=== PATIENT | female | born 1990 | race Caucasian/White ===

== ENCOUNTER 2016-07-23 18:31 | Inpatient (IN) | payer OTHER ==
[~2016-07-23] VITALS: Ht 157.5 cm; Wt 65.5 kg
--- NOTE | 2016-07-23 21:03 | DIAGNOSTIC IMAGING REPORT ---
PROCEDURE: CT ABD/PELVIS WITH CONTRAST INDICATION: Lower abdominal and back pain. Nausea and vomiting. Prior section. TECHNIQUE: 125 ml of Isovue 300 were injected intravenously and axial images were obtained of the entire abdomen and pelvis with sagittal and coronal reformations. COMPARISON: None. FINDINGS: ABDOMEN: There are moderately dilated distal small bowel loops. There is mild mucosal thickening of the right colon. Appendix is normal. Small amount of ascites. Gallbladder is partially contracted. Liver, spleen, pancreas, kidneys, and aorta are normal. PELVIS: Uterus and adnexal structures are normal. Small amount of ascites. IMPRESSION: 1. Moderately dilated distal small bowel loop suggest moderate to high-grade distal small bowel obstruction (possible closed-loop obstruction). 2. Associated small amount of ascites. 3. Mild mucosal thickening in the right colon. Consider associated colitis. 4. Normal appendix. 5. Findings discussed with JEFRY Oneill. All CT scans at this facility use dose modulation, iterative reconstruction, and/or weight-based dosing when appropriate to reduce radiation dose to as low as reasonably achievable.
--- NOTE | 2016-07-23 21:08 | ED NURSING NOTES ---
Clinical Report - Nurses [facility] [address] [place] [address] 07/23/2016 18:31 Patient: KAVITA DUMONT TRIAGE Triage time 18:50. Acuity: LEVEL 3. Chief Complaint: ABDOMINAL PAIN. 18:50 07/23/16. 18:50 07/23/16. Alert. SEPSIS SCREEN: Sepsis Screen. Negative (no infection suspected/documented). --18:54 Gerson Dixon R.N. 18:50 07/23/16. BP: 130/80. HR: 67. RR: 18. O2 saturation: 99% on room air. Temp: 97.7 F (oral). Pain level now: 11/18. --18:54 Gerson Dixon R.N. Weight: 58.9 kg stated. Height/Length: 62 inches Per Patient. BMI: 23.8. --18:51 Gerson Dixon R.N. Medications None. --18:52 Gerson Dixon R.N. Medication/allergy information source: the patient. --18:54 Gerson Dixon R.N. Allergies None. --18:52 Gerson Dixon R.N. History Arrived by private vehicle. Historian: patient. Accompanied by family. Primary physician (PAYAM DOHERTY). 18:50 07/23/16. This started today. She has had nausea and vomiting. 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 PAST MEDICAL HX: Immunizations: up-to-date. Last normal menstrual period- Just completed. Denies current . SOCIAL HX: Former smoker (cigarette)- less than 1/2 a pack per day. Occasional alcohol use. History of occasional drug use: marijuana. No recent travel. No infectious disease exposure. No known contact with a sick individual. ABUSE ASSESSMENT: No report of abuse. FALL RISK ASSESSMENT: Fall risk assessment completed. No fall risk identified. NUTRITIONAL RISK ASSESSMENT: The nutritional risk assessment revealed no deficiencies. FUNCTIONAL ASSESSMENT: Functional assessment: no impairments noted. LEARNING NEEDS ASSESSMENT: The learning needs assessment revealed no barriers. SKIN INTEGRITY ASSESSMENT: Skin integrity risk assessment completed. No skin integrity risk identified. --18:54 Gerson Dixon R.N. PROBLEMS: no known problems. ADDITIONAL SURGERIES: . --18:52 Gerson Dixon R.N. Assessment 18:50 07/23/16. --18:54 Gerson Dixon R.N. Interventions 18:50 07/23/16. 18:50 07/23/16. ID and allergy band on patient. To treatment room. --18:54 Gerson Dixon R.N. PHYSICAL ASSESSMENT 18:52 07/23/16. GENERAL / NEURO / PSYCH: Alert. Oriented X 4. RESPIRATORY: Respirations not labored. GI / : Abdominal tenderness diffusely. SKIN: Skin is warm and dry. --18:52 Gerson Dixon R.N. NURSING PROGRESS NOTES 18:53 07/23/16. The plan of care for this patient has been created. Patient gowned. Head of bed elevated. Reassurance given. Two patient identifiers checked. Call light placed in reach. Side rails up x 2. Bed placed in lowest position. Brakes of bed on. --18:53 Gerson Dixon R.N. 18:53 07/23/16. Patient ready for evaluation- chart flagged and notification provided. --18:53 Gerson Dixon R.N. 19:05 07/23/2016 Site #1 started via IV in the right antecubital space with an 20g angiocath; one attempt. Blood drawn: rainbow set. Labeled in the presence of the patient and sent to the lab. Saline lock flushed. --19:[address] R.N. 19:10 07/23/2016 Started bag #1 1000 mL IV Fluids IV NS (Saline); at 1000 mL/hr over 1 hour(s) via site #1 via IV pump. --19:[address] R.N. 19:11 07/23/2016 Dilaudid (HYDROmorphone HCl PF) IVP 1 mg given over 30 second(s) via site #1. Allergies verified, confirmed 5 rights and sedative warning given to the patient and patient's family. IV patency established. IV site checked: no pain, redness, or swelling. IV flushed thoroughly pre- and post-medication administration. IVP given by RN. --19:[address] R.N. 19:11 07/23/2016 Zofran (Ondansetron HCl) IVP 8 mg given over 4 minute(s) via site #1. Allergies verified and confirmed 5 rights. IV patency established. IV site checked: no pain, redness, or swelling. IV flushed thoroughly pre- and post-medication administration. IVP given by RN. --19:[address] R.N. 19:30 07/23/16. BP: 116/56. HR: 57. RR: 15. O2 saturation: 99%. Pain level now: 09/18. --19:[address] R.N. Reassessment after fluids administered. She has had no adverse reaction. Overall patient status is the same- she states feels the same. ( Pt still complaining of abdominal pain, will notify PA, denies feeling nausea or any further vomiting. IV fluids infusing as ordered). GI / : The patient reports abdominal pain. Denies nausea, diarrhea or vomiting. --19:[address] R.N. 19:53 07/23/2016 Dilaudid (HYDROmorphone HCl PF) IVP 1 mg given over 30 second(s) via site #1. Allergies verified, confirmed 5 rights and sedative warning given to the patient and patient's family. IV patency established. IV site checked: no pain, redness, or swelling. IV flushed thoroughly pre- and post-medication administration. IVP given by RN. --19:[address] R.N. Patient transported to [facility] by stretcher. (3 PM). --19:[address] R.N. late entry - 20:00. --20:[address] R.N. 20:00 07/23/16. BP: 106/58 (regular adult cuff) taken on the left arm, via an automated monitor, while lying. HR: 56. RR: 16 (regular). O2 saturation: 100%. Temp: 98.1 F. Pain level now: 06/18. --20:[address] R.N. Reassessment after fluids administered. Overall patient status is the same- she states feels the same. ( Would like more pain meds, will notify PA). GI / : The patient reports nausea. The patient reports abdominal pain. Denies diarrhea or vomiting. --20:[address] R.N. 20:58 07/23/16. BP: 106/82. HR: 56. RR: 16. O2 saturation: 97%. Temp: 98.1 F. Pain level now: 09/18. --20:[address] R.N. 21:05 07/23/2016 Dilaudid (HYDROmorphone HCl PF) IVP 2 mg given over 20 second(s) via site #1. Allergies verified, confirmed 5 rights and sedative warning given to the patient and patient's family. IV patency established. IV site checked: no pain, redness, or swelling. IV flushed thoroughly pre- and post-medication administration. IVP given by RN. --21:[address] R.N. 21:06 07/23/2016 PHENERGAN (Promethazine HCl) IVP 12.5 mg given over 30 second(s) via site #1. Allergies verified and confirmed 5 rights. IV patency established. IV site checked: no pain, redness, or swelling. IV flushed thoroughly pre- and post-medication administration. IVP given by RN. --21:[address] R.N. 21:42 07/23/2016 Ativan (LORazepam) IVP 2 mg given over 20 second(s) via site #1. Allergies verified, confirmed 5 rights and sedative warning given to the patient and patient's family. IV patency established. IV site checked: no pain, redness, or swelling. IV flushed thoroughly pre- and post-medication administration. IVP given by RN. --21:[address] R.N. 21:47 07/23/2016 Dilaudid (HYDROmorphone HCl PF) IVP 1 mg given over 20 second(s) via site #1. Allergies verified, confirmed 5 rights and sedative warning given to the patient and patient's family. IV patency established. IV site checked: no pain, redness, or swelling. IV flushed thoroughly pre- and post-medication administration. IVP given by RN. --21:[address] R.N. 21:50 07/23/16. BP: 101/68. HR: 59. RR: 14. O2 saturation: 98% on room air. Pain level now: 05/19. --21:[address] R.N. Pulse oximeter and NIBP monitor placed on patient; monitor alarms on. Reassurance given. ( NGT dropped #16 at 65 on the right nostril, secured now to LCWS, yellow clear noted. Pt tolerated well, VSS.). Two patient identifiers checked. Call light placed in reach. Side rails up x 1. Bed placed in lowest position. Brakes of bed on. --21:[address] R.N. Patient waiting for admit bed. --21:[address] R.N. 22:04 07/23/2016 Started bag #1 1000 mL IV Fluids IV NS (Saline); at 125 mL/hr over 5 hour(s) via site #1 via IV pump. Allergies verified and confirmed 5 rights. IV patency established. IV site checked: no pain, redness, or swelling. IV flushed thoroughly pre- and post-medication administration. --22:[address] R.N. Care transferred and report given (FABIO Herbert). --22:[address] R.N. 22:22 07/23/2016 Site #1 reassessed; patent, infusing well and no signs of infection. Good blood return present. --22:[address] R.N. Pulse oximeter and NIBP monitor placed on patient; monitor alarms on. Reassurance given. The patient is calm and resting quietly. Overall patient status is the same- she states feels better. GI / : Denies nausea or vomiting. --22:[address] R.N. DISPOSITION / DISCHARGE Report was given to a nurse via a phone call. Report included patient's care, treatment, medications, reviewed medication reconcilliation, and condition (including any recent changes or anticipated changes). All questions were answered. Report was acknowledged. (given by Yue Valdez RN). --:53 Shakila Be R.N. Departure time: :. --:53 Shakila Be R.N. Nasogastric tube not discontinued. Transported via stretcher by transport team with IV. --:53 Shakila Be R.N. 22:53 07/23/2016 Site #[address] upon admission. --22:53 Shakila Be R.N. 22:54 07/23/2016 IV Fluids IV NS Continued: at the rate of 125 mL/hr. 900 mL remaining bag #1. IV patency established. IV site checked: no pain, redness, or swelling. IV flushed thoroughly. --:54 Shakila Be R.N. Locked/Released at 07/24/2016 20:[address] R.N.
--- NOTE | 2016-07-23 21:08 | ED CLINICAL REPORT ---
Clinical Report - Physicians/Mid Levels [facility] [address] [place] [address] 07/23/2016 18:31 Patient: KAVITA DUMONT Time Seen: 19:08 Jul 23 2016. Arrived- By private vehicle. HISTORY OF PRESENT ILLNESS Chief Complaint: ABDOMINAL PAIN. It is described as "pain" and it is described as located in the periumbilical area. This started just prior to arrival and is still present. The patient has had nausea and vomiting. No diarrhea. (Patient reports sudden onset of abdominal pain, periumbilically with emesis/ nausea, denies diarrhea. Denies any recent illness. Denies urgency or frequency. Patient reports history of similar pain, with a bowel obstruction in the past, status post .). REVIEW OF SYSTEMS Last normal menstrual period- 2-3 days prior. No constipation, black stools, difficulty with urination, urinary frequency or fever. No headache, sore throat or chills. All systems otherwise negative, except as recorded above. PAST HISTORY Problems: no known problems. Additional Surgeries: . Medications: None. Allergies: None. SOCIAL HISTORY Former smoker. Alcohol use. ADDITIONAL NOTES The nursing notes have been reviewed. PHYSICAL EXAM Vital Signs: 07/23/2016 18:50 BP: 130/80. HR: 67. RR: 18. O2 saturation: 99%. Temp: 97.7 F. Pain level now: 10/10. Appearance: Alert. Eyes: Eyes normal inspection. ENT: Ears normal. Nose normal. Pharynx normal. Neck: Normal inspection. CVS: Normal heart rate and rhythm. Heart sounds normal. Respiratory: No respiratory distress. Breath sounds normal. Chest nontender. No accessory muscle use or decreased air movement. Abdomen: Moderate tenderness in the periumbilical area. Bowel sounds normal. No organomegaly. No mass. Scar present. Compatible with prior . Back: Normal inspection. No CVA tenderness. Skin: Skin warm. Normal skin color. Neuro: Oriented X 3. No motor deficit. LABS, X-RAYS, AND EKG Abdominal CT: IMPRESSION: 1. Moderately dilated distal small bowel loop suggest moderate to high-grade distal small bowel obstruction (possible closed-loop obstruction). 2. Associated small amount of ascites. 3. Mild mucosal thickening in the right colon. Consider associated colitis. 4. Normal appendix. 5. Findings discussed with JEFRY Oneill. All CT scans at this facility use dose modulation, iterative reconstruction, and/or weight-based dosing when appropriate to reduce radiation dose to as low as reasonably achievable. Electronically Final signed by:Danielito Mcgarry MD 07/23/2016 8:58:32 PM. Laboratory Tests: UA-Culture if indicated: (JACKSON: 07/23/2016 18:55) ( [facility] 07/23/2016 19:34) Final results Test Result Flag Units (Reference) URINE COLOR YELLOW URINE APPEARANCE CLEAR URINE GLUCOSE NEGATIVE (NEGATIVE) URINE BILIRUBIN NEGATIVE (NEGATIVE) URINE KETONE NEGATIVE (NEGATIVE) URINE SPECIFIC GRAVITY 1.015 (1.010-1.030) URINE PH 6.5 (5.0-8.0) URINE PROTEIN NEGATIVE (NEGATIVE) URINE UROBILINOGEN 0.2 EU/dL (0.2-1.0) URINE NITRITE NEGATIVE (NEGATIVE) URINE BLOOD NEGATIVE (NEGATIVE) URINE LEUK ESTERASE NEGATIVE (NEGATIVE) URINE RBC 0-1 rbc/hpf (0-1) URINE WBC 0-1 wbc/hpf (0-1) URINE EPITHELIAL CELLS 3-5 EPI/hpf (0-5) URINE BACTERIA TRACE (<1+) (NONE SEEN) URINE COMMENT CULT NOT INDICATED 2+ MUCUSURINE CULTURES ARE SET-UP BASED ON THE FOLLOWING CRITERIA:POSITIVE NITRITEPOSITIVE LEUKOCYTE ESTERASEGREATER THAN 10 WHITE BLOOD CELLSMODERATE (2+) OR GREATER BACTERIA Urine: (JACKSON: 07/23/2016 18:55) ( [facility] 07/23/2016 19:16) Final results Test Result Flag Units (Reference) URINE NEGATIVE CBC w Diff: (JACKSON: 07/23/2016 19:02) ( [facility] 07/23/2016 19:35) Final results Test Result Flag Units (Reference) WHITE BLOOD COUNT 8.1 K/uL (4.5-11.5) RED BLOOD COUNT 4.01 M/uL (4.00-5.20) HEMOGLOBIN 13.1 gm/dL (12.0-16.0) HEMATOCRIT 38.9 % (36.0-46.0) MEAN CELL VOLUME 97 fL (80-100) MEAN CORPUSCULAR HGB 33 pg (26-34) MEAN CORPUSCULAR HGB CONC 34 g/dL (31-37) RED CELL DISTRIBUTION WIDTH 13.2 % (11.6-14.8) PLATELET COUNT 272 K/uL (150-400) NEUTROPHIL % 46.8 L % (50-75) LYMPH % 44.0 H % (25-40) MONO % 7.9 % (3-14) EOSINOPHIL % 1.1 % (0-4) BASOPHIL % 0.2 % (0-2) CMP: (JACKSON: 07/23/2016 19:02) ( MsgRcvd 07/23/2016 19:42) Final results Test Result Flag Units (Reference) GLUCOSE 88 mg/dL (70-110) BUN 7 mg/dL (7-18) CREATININE 0.6 mg/dL (0.6-1.3) Estimated GFR >60 mL/min Estimated GFR- >60 mL/min Note: Persistent reduction over 3 months in eGFR<60 mL/min/1.73 m2 defines CKD. Patients with eGFR values>=60 mL/min/1.73 m2 may also have CKD if evidence ofpersistent proteinuria. Additional information may be foundat www.kidney.org. SODIUM 141 mmol/L (136-145) POTASSIUM 3.6 mmol/L (3.5-5.1) CHLORIDE 105 mmol/L (98-107) CARBON DIOXIDE 28 mmol/L (21-32) CALCIUM 9.3 mg/dL (8.5-10.1) TOTAL PROTEIN 7.0 g/dL (6.4-8.2) ALBUMIN 3.7 g/dL (3.3-5.0) BILIRUBIN, TOTAL 0.3 mg/dL (0.0-1.0) ALKALINE PHOSPHATASE 50 U/L (46-116) AST (SGOT) 18 U/L (15-37) ALT (SGPT) 32 U/L (12-78) LIPASE 139 U/L (73-393) . PROGRESS AND PROCEDURES Course of Care: patient in a lot of pain, dane-umbilically, with negative lab workup. CT of the abdomen was ordered. Patient with history of bowel obstruction. Signs early bowel obstruction in the emergency department. Case discussed with Dr. Issa, who recommends NG tube, and will admit the patient. NG tube placed. 07/23/2016 21:50 BP: 101/68. HR: 59. RR: 14. O2 saturation: 98%. Pain level now: 4/10. 07/23/2016 20:58 BP: 106/82. HR: 56. RR: 16. O2 saturation: 97%. Temp: 98.1 F. Pain level now: 8/10. Patient is stable. Physical exam findings are improved. Symptoms better. Patient/family counseled. Disposition: Admitted. CLINICAL IMPRESSION SBO. (Electronically signed by Brigid Aguilera P.A.-C 07/23/2016 22:14)
--- NOTE | 2016-07-23 21:08 | ED ORDER SUMMARY ---
..... Patient: KAVITA DUMONT [facility] VisitID: [id number] [place] [address] 25y, F Registration Date/Time: 07/23/2016 ORDER SHEET Weight: 58.9 kg (stated) Allergies: None GENERAL ORDERS: UA-Culture if indicated Urgent (18:53 07/23/2016 JBoardley R.N. per protocol) (Ack 18:55 PWeiler ER Tech1) (19:10 EHassan R.N.) Urine Urgent (18:53 07/23/2016 JBoardley R.N. per protocol) (Ack 18:55 PWeiler ER Tech1) (19:10 EHassan R.N.) CBC w Diff Urgent (19:00 07/23/2016 EKoroleva P.A.-C) (Ack 19:01 PWeiler ER Tech1) (19:10 EHassan R.N.) CMP Urgent (19:00 07/23/2016 EKoroleva P.A.-C) (Ack 19:01 PWeiler ER Tech1) (19:10 EHassan R.N.) Lipase Urgent (19:00 07/23/2016 EKoroleva P.A.-C) (Ack 19:01 PWeiler ER Tech1) (19:10 EHassan R.N.) NPO (19:00 07/23/2016 EKoroleva P.A.-C) (19:10 EHassan R.N.) CT Abd/Pel w Cont (No) (see lab) Urgent (19:45 07/23/2016 EKoroleva P.A.-C) (19:53 EHassan R.N.) NG Tube (to intermittent suction) (21:09 07/23/2016 EKoroleva P.A.-C) (21:46 EHassan R.N.) MEDICATION ORDERS: Phenergan IV 12.5 mg (HIGH ALERT MEDICATION, NOW) (21:00 07/23/2016 EKoroleva P.A.-C) (21:06 EHassan R.N.) IV FLUIDS: IV NS : initial bolus 1000 mL (1000 mL/hr), then 1000 mL/hr for X1 (NOW); Raghu (18:59 07/23/2016 EKoroleva P.A.-C) (19:10 EHassan R.N.) Dilaudid IV 1 mg (HIGH ALERT MEDICATION, NOW) (19:00 07/23/2016 EKoroleva P.A.-C) (19:11 EHassan R.N.) Zofran IV 8 mg (NOW) (19:08 07/23/2016 EKoroleva P.A.-C) (19:11 EHassan R.N.) Dilaudid IV 1 mg (HIGH ALERT MEDICATION, NOW) (19:50 07/23/2016 EKoroleva P.A.-C) (19:53 EHassan R.N.) Dilaudid IV 2 mg (HIGH ALERT MEDICATION, NOW) (20:59 07/23/2016 EKoroleva P.A.-C) (21:05 EHassan R.N.) Ativan IV 2 mg (HIGH ALERT MEDICATION, NOW) (21:34 07/23/2016 EKoroleva P.A.-C) (21:47 EHassan R.N.) Dilaudid IV 1 mg (HIGH ALERT MEDICATION, NOW) (21:34 07/23/2016 EKoroleva P.A.-C) (21:47 EHassan R.N.) IV NS : initial bolus none -, then 125 mL/hr for X1 (NOW); Raghu (21:52 07/23/2016 EKoroleva P.A.-C) (22:19 EHassan R.N.) ORDER SHEET NOTES: [Electronically signed by Brigid AguileraAShadia-C (22:14 07/23/2016)] [Electronically signed by Concepcion Lane R.N. (20:28 07/24/2016)] [Electronically locked/signed by Concepcion Lane R.N. (20:28 07/24/2016)]
--- NOTE | 2016-07-23 21:08 | ED ORDER SUMMARY ---
..... Patient: KAVITA DUMONT OrderSheet [facility] VisitID: [id number] [place] [address] 25y, F Registration Date/Time: 07/23/2016 ORDER SHEET Weight: 58.9 kg (stated) Allergies: None GENERAL ORDERS: UA-Culture if indicated Urgent (18:53 07/23/2016 JBoardley R.N. per protocol) (Ack 18:55 PWeiler ER Tech1) (19:10 EHassan R.N.) Urine Urgent (18:53 07/23/2016 JBoardley R.N. per protocol) (Ack 18:55 PWeiler ER Tech1) (19:10 EHassan R.N.) CBC w Diff Urgent (19:00 07/23/2016 EKoroleva P.A.-C) (Ack 19:01 PWeiler ER Tech1) (19:10 EHassan R.N.) CMP Urgent (19:00 07/23/2016 EKoroleva P.A.-C) (Ack 19:01 PWeiler ER Tech1) (19:10 EHassan R.N.) Lipase Urgent (19:00 07/23/2016 EKoroleva P.A.-C) (Ack 19:01 PWeiler ER Tech1) (19:10 EHassan R.N.) NPO (19:00 07/23/2016 EKoroleva P.A.-C) (19:10 EHassan R.N.) CT Abd/Pel w Cont (No) (see lab) Urgent (19:45 07/23/2016 EKoroleva P.A.-C) (19:53 EHassan R.N.) NG Tube (to intermittent suction) (21:09 07/23/2016 EKoroleva P.A.-C) (21:46 EHassan R.N.) MEDICATION ORDERS: Phenergan IV 12.5 mg (HIGH ALERT MEDICATION, NOW) (21:00 07/23/2016 EKoroleva P.A.-C) (21:06 EHassan R.N.) IV FLUIDS: IV NS : initial bolus 1000 mL (1000 mL/hr), then 1000 mL/hr for X1 (NOW); Raghu (18:59 07/23/2016 EKoroleva P.A.-C) (19:10 EHassan R.N.) Dilaudid IV 1 mg (HIGH ALERT MEDICATION, NOW) (19:00 07/23/2016 EKoroleva P.A.-C) (19:11 EHassan R.N.) Zofran IV 8 mg (NOW) (19:08 07/23/2016 EKoroleva P.A.-C) (19:11 EHassan R.N.) Dilaudid IV 1 mg (HIGH ALERT MEDICATION, NOW) (19:50 07/23/2016 EKoroleva P.A.-C) (19:53 EHassan R.N.) Dilaudid IV 2 mg (HIGH ALERT MEDICATION, NOW) (20:59 07/23/2016 EKoroleva P.A.-C) (21:05 EHassan R.N.) Ativan IV 2 mg (HIGH ALERT MEDICATION, NOW) (21:34 07/23/2016 EKoroleva P.A.-C) (21:47 EHassan R.N.) Dilaudid IV 1 mg (HIGH ALERT MEDICATION, NOW) (21:34 07/23/2016 EKoroleva P.A.-C) (21:47 EHassan R.N.) IV NS : initial bolus none -, then 125 mL/hr for X1 (NOW); Raghu (21:52 07/23/2016 EKoroleva P.A.-C) (22:19 EHassan R.N.) ORDER SHEET NOTES: [Electronically signed by Brigid AguileraAShadia-C (22:14 07/23/2016)] [Electronically signed by Concepcion Lane R.N. (20:28 07/24/2016)] [Electronically locked/signed by Concepcion Lane R.N. (20:28 07/24/2016)]
[2016-07-23 23:06] VITALS: BP 103/53
[2016-07-24] VITALS (10 sets, daily range): BP systolic 95–115; BP diastolic 50–82
--- NOTE | 2016-07-24 11:22 | CONSULTATION REPORT ---
DATE OF CONSULTATION: 07/24/2016 CHIEF COMPLAINT: 1. Abdominal pain HISTORY OF PRESENT ILLNESS: The patient is a 25-year-old woman who presented to the emergency department with the acute onset of lower abdominal pain of sudden onset. The pain persisted overnight, requiring pain medication. The patient indicates the pain is slightly to the right of midline. ED evaluation included a CT scan, which demonstrated dilated loops of bowel, consistent with a closed loop obstruction in that area. The patient reports having had a similar episode treated at another hospital with nasogastric decompression until it fully resolved. Her only previous abdominal surgery is a . MEDICAL/SURGICAL HISTORY: Medical history is unremarkable. Past medical illnesses: None. MEDICATIONS: 1. None. ALLERGIES: 1. NONE. 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 She is engaged to be . She is G2, P2, both C-sections, one 7 years ago and one 10 months ago. FAMILY HISTORY: Largely unknown, except that her mother at some point from renal failure. REVIEW OF SYSTEMS: The patient reports a similar episode to this occurred shortly after a section and resolved with decompression, nasogastric management. REVIEW OF SYSTEMS: GENERAL: The patient is alert and cooperative. She was sleeping after receiving pain medications, but once awoken she was able to provide appropriate history and was oriented. VITAL SIGNS: Most recent vital signs: Temperature 98.2, pulse of 58, respirations 18, blood pressure 115/70, 100% room air O2 saturation. HEENT: Her ears and nose demonstrate no gross external lesions. Eyes are equal. She is anicteric. NECK: Without palpable masses or thyromegaly. CHEST: Clear, without wheeze or rales. HEART: Regular, without murmur or gallop. ABDOMEN: Reveals localized tenderness in the right lower quadrant of the abdomen , with involuntary guarding in this area. Once she had received pain medications, however, her belly became quite a bit softer. LAB/IMAGING: CBC: White count is 8.1, hemoglobin and hematocrit 13.1 and 38.9. Electrolytes, liver enzymes, and lipase are all normal. Urinalysis is 0-1 red cells, 0-[address] scan demonstrated moderately dilated distal small bowel suggesting a wfewcynu-nx-bjwz-grade distal small-bowel obstruction, and possibly closed loop. There is also a small amount of ascites. There was some mucosal thickening in the right colon, and colitis was also raised as a possibility. The appendix was normal. IMPRESSION: 1. Small bowel obstruction with possible closed-loop obstruction PLAN: I recommended a diagnostic laparoscopy. I reported to the patient the nature of this procedure. There is some uncertainty of what we will find. If we are jay and there is simply adhesive obstruction without strangulation or infarction of the bowel, then simply dividing the adhesion may be accomplished laparoscopically. If, however, we find gut or more serious pathology, open surgery could prove to be necessary, bowel resection and many other unpredictable possibilities. I made the patient aware of these and other risks. She desires to proceed with surgery as described to her. Generic risks were also discussed, including infection, bleeding, scars, pain, damage to local structures. I talked about the remote possibility of a stoma.
--- NOTE | 2016-07-24 17:17 | OPERATIVE REPORT ---
DATE OF SURGERY: 07/24/2016 SURGEON: Arthur Thomas MD PREOPERATIVE DIAGNOSIS: 1. Small-bowel obstruction POSTOPERATIVE DIAGNOSIS: 1. Small-bowel obstruction PROCEDURE PERFORMED: 1. Diagnostic laparoscopy with adhesiolysis ANESTHESIA: General. COMPLICATIONS: No intraoperative complications were encountered. INDICATIONS: The patient is a 25-year-old woman with evidence of a bowel obstruction and ongoing pain despite decompression. SURGICAL TECHNIQUE: The patient was taken to the operating room, where a general anesthetic was administered and patient prepped and draped in the usual sterile fashion. A local anesthetic of 0.5% Marcaine with epinephrine was used at each incision site. An infraumbilical incision was made and a Veress needle used to insufflate the abdominal cavity. A 10 mm trocar was placed and visualization demonstrated a large band of omental adhesions covering entire midline and attached to the anterior portion of the uterus. Eventually a total of 3 additional 5 mm ports were placed. The Thunderbeat device was used to take down the omental adhesions. These themselves were not causing the obstruction; however, in the way of getting at the pathology in question. Exploration revealed there was free fluid in the pelvis and around the liver. The cecum was visualized and appeared to be normal externally. The appendix was also normal. The terminal ileum was followed back a short distance, but immediately led to a very tightly kinked section of bowel where there was a bowstring type adhesion that was wrapped around the bowel and kinking it very significantly. It was possible to lift this up with the cold forceps and then divide it with the Thunderbeat device. Once the band was freed up the bowel immediately appeared to open up at that site of kinking. There was a small grayish area underlying the band and some purplish discoloration at this location. This was observed for some time and eventually pink blood flow returned to the serosa and muscularis. The surgical judgment was that this is a viable piece of bowel and did not require resection. It was only part of the lumen that had this funny appearance initially. The remainder of the bowel appeared to be uninvolved with the obstructive process. Excessive ascites was suctioned away, a small amount of Marcaine instilled, gas was evacuated. A single interrupted subcuticular 4-0 Vicryl was placed at the umbilicus and the other sites, and all trocar sites were treated with Steri-Strips and dressings. The patient left in good condition. The NG tube was removed prior to the patient awakening.
--- NOTE | 2016-07-24 20:28 | ED MAR SUMMARY ---
..... Medication Administration Record [facility] [address] [place] [address] Patient: KAVITA DUMONT Visit ID: [id number] 25y, F Weight: 58.9 kg Height/Length: 62 in BMI: 23.8 ALLERGIES: None Start 19:07/23/[address] R.N. Medication Administered: IV NS (SALINE), Dose: IV Fluids over 1 hour(s), Rate: 1000 mL/hr, Dispensed: 1000 mL bag, Site: #1 right AC. Medication Ordered: IV NS : initial bolus 1000 mL (1000 mL/hr), then 1000 mL/hr for X1 (NOW); Raghu. Given :07/23/[address] R.N. Medication Administered: DILAUDID [IVP] (HYDROMORPHONE HCL PF), Dose: 1 mg IVP over 30 second(s), Site: #1 right AC. Medication Ordered: Dilaudid IV 1 mg (HIGH ALERT MEDICATION, NOW). Given :07/23/[address] R.N. Medication Administered: ZOFRAN [IVP] (ONDANSETRON HCL), Dose: 8 mg IVP over 4 minute(s), Site: #1 right AC. Medication Ordered: Zofran IV 8 mg (NOW). Given :07/23/[address] R.N. Medication Administered: DILAUDID [IVP] (HYDROMORPHONE HCL PF), Dose: 1 mg IVP over 30 second(s), Site: #1 right AC. Medication Ordered: Dilaudid IV 1 mg (HIGH ALERT MEDICATION, NOW). Given :07/23/[address] R.N. Medication Administered: DILAUDID [IVP] (HYDROMORPHONE HCL PF), Dose: 2 mg IVP over 20 second(s), Site: #1 right AC. Medication Ordered: Dilaudid IV 2 mg (HIGH ALERT MEDICATION, NOW). Given :07/23/[address] R.N. Medication Administered: PHENERGAN [IVP] (PROMETHAZINE HCL), Dose: 12.5 mg IVP over 30 second(s), Site: #1 right AC. Medication Ordered: Phenergan IV 12.5 mg (HIGH ALERT MEDICATION, NOW). Given 21:42 07/23/[address] RShadiaN. Medication Administered: ATIVAN [IVP] (LORAZEPAM), Dose: 2 mg IVP over 20 second(s), Site: #1 right AC. Medication Ordered: Ativan IV 2 mg (HIGH ALERT MEDICATION, NOW). Given 21:47 07/23/[address] R.N. Medication Administered: DILAUDID [IVP] (HYDROMORPHONE HCL PF), Dose: 1 mg IVP over 20 second(s), Site: #1 right AC. Medication Ordered: Dilaudid IV 1 mg (HIGH ALERT MEDICATION, NOW). Start 22:04 07/23/[address] RShadiaNShadia, Continued Upon Disposition 22:54 07/23/2016 [address] RShadiaN. Medication Administered: IV NS (SALINE), Dose: IV Fluids over 5 hour(s), Rate: 125 mL/hr, Dispensed: 1000 mL bag, Site: #1 right AC. Medication Ordered: IV NS : initial bolus none -, then 125 mL/hr for X1 (NOW); Raghu.
--- NOTE | 2016-07-24 20:28 | ED DISCHARGE INSTRUCTIONS ---
Patient: KAVITA DUMONT General Instructions [facility] VisitID: [id number] [address] [place] [address] 25y, F Registration Date/Time: 07/23/2016 SBO. (Electronically signed by Brigid Aguilera P.A.-C 07/23/2016 22:14)
--- NOTE | 2016-07-24 20:28 | ED MAR SUMMARY ---
..... Medication Administration Record [facility] [address] [place] [address] Patient: KAVITA DUMONT Visit ID: [id number] 25y, F Weight: 58.9 kg Height/Length: 62 in BMI: 23.8 ALLERGIES: None Start 19:07/23/[address] R.N. Medication Administered: IV NS (SALINE), Dose: IV Fluids over 1 hour(s), Rate: 1000 mL/hr, Dispensed: 1000 mL bag, Site: #1 right AC. Medication Ordered: IV NS : initial bolus 1000 mL (1000 mL/hr), then 1000 mL/hr for X1 (NOW); Raghu. Given :07/23/[address] R.N. Medication Administered: DILAUDID [IVP] (HYDROMORPHONE HCL PF), Dose: 1 mg IVP over 30 second(s), Site: #1 right AC. Medication Ordered: Dilaudid IV 1 mg (HIGH ALERT MEDICATION, NOW). Given :07/23/[address] R.N. Medication Administered: ZOFRAN [IVP] (ONDANSETRON HCL), Dose: 8 mg IVP over 4 minute(s), Site: #1 right AC. Medication Ordered: Zofran IV 8 mg (NOW). Given :07/23/[address] R.N. Medication Administered: DILAUDID [IVP] (HYDROMORPHONE HCL PF), Dose: 1 mg IVP over 30 second(s), Site: #1 right AC. Medication Ordered: Dilaudid IV 1 mg (HIGH ALERT MEDICATION, NOW). Given :07/23/[address] R.N. Medication Administered: DILAUDID [IVP] (HYDROMORPHONE HCL PF), Dose: 2 mg IVP over 20 second(s), Site: #1 right AC. Medication Ordered: Dilaudid IV 2 mg (HIGH ALERT MEDICATION, NOW). Given :07/23/[address] R.N. Medication Administered: PHENERGAN [IVP] (PROMETHAZINE HCL), Dose: 12.5 mg IVP over 30 second(s), Site: #1 right AC. Medication Ordered: Phenergan IV 12.5 mg (HIGH ALERT MEDICATION, NOW). Given 21:42 07/23/[address] RShadiaN. Medication Administered: ATIVAN [IVP] (LORAZEPAM), Dose: 2 mg IVP over 20 second(s), Site: #1 right AC. Medication Ordered: Ativan IV 2 mg (HIGH ALERT MEDICATION, NOW). Given 21:47 07/23/[address] R.N. Medication Administered: DILAUDID [IVP] (HYDROMORPHONE HCL PF), Dose: 1 mg IVP over 20 second(s), Site: #1 right AC. Medication Ordered: Dilaudid IV 1 mg (HIGH ALERT MEDICATION, NOW). Start 22:04 07/23/[address] RShadiaNShadia, Continued Upon Disposition 22:54 07/23/2016 Sh[address] RShadiaN. Medication Administered: IV NS (SALINE), Dose: IV Fluids over 5 hour(s), Rate: 125 mL/hr, Dispensed: 1000 mL bag, Site: #1 right AC. Medication Ordered: IV NS : initial bolus none -, then 125 mL/hr for X1 (NOW); Raghu.
--- NOTE | 2016-07-24 20:28 | ED DISCHARGE INSTRUCTIONS ---
Patient: KAVITA DUMONT General Instructions [facility] VisitID: [id number] [address] [place] [place] [address] 25y, F Registration Date/Time: 07/23/2016 SBO. (Electronically signed by Brigid Aguilera P.A.-C 07/23/2016 22:14)
--- NOTE | 2016-07-24 20:28 | ED MED RECONCILIATION SUMMARY ---
Patient: KAVITA DUMONT Medication Reconciliation Report [facility] VisitID: [id number] [address] [place] [address] 25y, F Registration Date/Time: 07/23/2016 Weight: 58.9 kg Height/Length: 62 in. BMI: 23.8 ALLERGIES: None The patient's Home Medications are listed below: NONE. The source(s) of the original Home Medication information: patient The following Medications were given to the patient in the Emergency Department: IV NS IV Fluids bolus 0, then 1000 mL/hr, administered: 07/23/2016 7:10:00 PM Dilaudid [IVP] IVP 1 mg, administered: 07/23/2016 7:11:00 PM Zofran [IVP] IVP 8 mg, administered: 07/23/2016 7:11:00 PM Dilaudid [IVP] IVP 1 mg, administered: 07/23/2016 7:53:00 PM Dilaudid [IVP] IVP 2 mg, administered: 07/23/2016 9:05:00 PM PHENERGAN [IVP] IVP 12.5 mg, administered: 07/23/2016 9:06:00 PM Ativan [IVP] IVP 2 mg, administered: 07/23/2016 9:42:00 PM Dilaudid [IVP] IVP 1 mg, administered: 07/23/2016 9:47:00 PM IV NS IV Fluids bolus 0, then 125 mL/hr, administered: 07/23/2016 10:04:00 PM The following Medications were prescribed to the patient: None.
--- NOTE | 2016-07-24 20:28 | ED MED RECONCILIATION SUMMARY ---
Patient: KAVITA DUMONT Medication Reconciliation Report [facility] VisitID: [id number] [address] [place] [address] 25y, F Registration Date/Time: 07/23/2016 Weight: 58.9 kg Height/Length: 62 in. BMI: 23.8 ALLERGIES: None The patient's Home Medications are listed below: NONE. The source(s) of the original Home Medication information: patient The following Medications were given to the patient in the Emergency Department: IV NS IV Fluids bolus 0, then 1000 mL/hr, administered: 07/23/2016 7:10:00 PM Dilaudid [IVP] IVP 1 mg, administered: 07/23/2016 7:11:00 PM Zofran [IVP] IVP 8 mg, administered: 07/23/2016 7:11:00 PM Dilaudid [IVP] IVP 1 mg, administered: 07/23/2016 7:53:00 PM Dilaudid [IVP] IVP 2 mg, administered: 07/23/2016 9:05:00 PM PHENERGAN [IVP] IVP 12.5 mg, administered: 07/23/2016 9:06:00 PM Ativan [IVP] IVP 2 mg, administered: 07/23/2016 9:42:00 PM Dilaudid [IVP] IVP 1 mg, administered: 07/23/2016 9:47:00 PM IV NS IV Fluids bolus 0, then 125 mL/hr, administered: 07/23/2016 10:04:00 PM The following Medications were prescribed to the patient: None.
[2016-07-25 02:18] VITALS: BP 94/56
--- NOTE | 2016-07-25 08:37 | Progress Note ---
Subjective General Pt was sore and anxious last night, was sleeping comfortably this morning when I saw her. She is interested in eating and going home. Physical Exam Vital Signs / I&Os Vital Signs Date Time Temp Pulse Resp B/P Pulse O2 O2 Flow FiO2 Ox Delivery Rate 07/25 0218 98.4 55 18 94/56 92 Room Air / 2237 98.2 67 18 108/50 96 Room Air / 1813 98.4 60 16 109/63 94 Room Air / 1743 98.6 56 16 104/64 96 Room Air 06/15 1715 81 16 110/67 98 Room Air 06/15 1700 98.2 72 16 105/69 98 Room Air /15 1645 97.9 86 16 111/64 99 Room Air /15 1633 98.2 75 16 104/82 98 Room Air 06/15 1630 Room Air 1.0 / 1610 99.1 85 16 111/67 99 06/15 1605 76 26 104/55 95 06/15 1600 68 13 106/53 97 Nasal 1.0 Cannula 06/15 1555 69 13 109/66 98 Nasal 2.0 Cannula 06/15 1550 70 13 112/67 97 Nasal 2.0 Cannula 06/15 1545 72 16 119/73 96 Nasal 2.0 Cannula 06/15 1540 86 21 117/64 100 Nasal 2.0 Cannula 06/15 1535 80 23 113/58 95 Nasal 2.0 Cannula 06/15 1530 88 18 126/68 98 Nasal 2.0 Cannula 06/15 1526 97.9 115 22 145/82 96 Nasal 2.0 Cannula 06/15 1003 98.2 58 18 115/70 100 Nasal 2.0 Cannula I&O 15 0800 /15 1600 16 0000 Intake Total 898 2630 200 Output Total 500 2350 800 Balance 398 280 -600 General Appearance Alert, Oriented X3, Cooperative Abdomen Normal exam, Normal bowel sounds Assessment and Plan Problem List 1. Small bowel obstruction Plan appears to have resolved, no n and v or bloating-will increase clear liquids and if diet is tolerated send home on oral meds.
[2016-07-25] MEDS ORDERED: PERCOCET1 TA1 PO (08:42)
--- NOTE | 2016-07-25 08:42 | Provider's Discharge Care Plan ---
Problem, Goal, Plan Problem List 1. Small bowel obstruction
--- NOTE | 2016-07-25 08:42 | Provider's Discharge Care Plan ---
Problem, Goal, Plan Problem List 1. Small bowel obstruction
[2016-07-25 09:52] VITALS: BP 113/64
== END 2016-07-25 13:00 | disposition home or self-care (01) | DRG 224 ==
LOC: ED SRH 18:31 → TRANS SRH 21:13 → ACUTE2 SRH 23:04
PROVIDERS: Surgery; ADMIT Emergency Medicine
PROC: 0D9670Z Drainage of Stomach with Drainage Device, Via Natural or Artificial Opening (ICD-10-PCS; 2016-07-23)
PROC: 0DNB4ZZ Release Ileum, Percutaneous Endoscopic Approach (ICD-10-PCS; principal; 2016-07-24 13:30)
PROC: 0W9G4ZZ Drainage of Peritoneal Cavity, Percutaneous Endoscopic Approach (ICD-10-PCS; principal; 2016-07-24 13:30)
DX: K56.5 Intestinal adhesions [bands] with obstruction (postinfection) (principal); R18.8 Other ascites; F17.210 Nicotine dependence, cigarettes, uncomplicated
CPT/HCPCS: 50002; 60001; 70002; 80102; 80212; 80248; 81523; 82794; 82897; 83587; 83919; 83982; 84038; 90004; 90100; 92235; 93070; 95059